=== PATIENT | male | born 1950 | race African-American/Black ===

== ENCOUNTER → 2018-01-24 | Day surgery (SDC) | payer MEDICARE, MEDICAID ==
[~2018-01-24] MED LIST: Calcium Acetate PO; Docusate Sodium PO; Ergocalciferol PO; Folic Acid PO; IOHEXOL-300 100 ML BOTTLE ONE; LIDOCAINE HCL 1% 20ML VIAL (Pyxis) INJ ONE; NEPVIT PO; PANT40TA4 PO; Polyethylene Glycol 3350 PO; TAMS-11 PO
== END | disposition home or self-care (01) ==
LOC: EDSTATUS 11:07 → RADANGIO 11:08
PROVIDERS: ATTEND Internal Medicine Nephrology
DX: N18.6 End stage renal disease (principal); I13.2 Hypertensive heart and chronic kidney disease with heart failure and with stage 5 chronic kidney disease, or end stage renal disease; F17.200 Nicotine dependence, unspecified, uncomplicated; Z79.899 Other long term (current) drug therapy; Z99.2 Dependence on renal dialysis; Z83.3 Family history of diabetes mellitus
CPT/HCPCS: 36589; J3490

== ENCOUNTER 2019-06-16 13:56 | Emergency (ER) | payer MEDICARE, MEDICAID ==
[~2019-06-16] VITALS: Ht 175.3 cm; Wt 77.0 kg
[~2019-06-16 13:56] MED LIST changes: -IOHEXOL-300 100 ML BOTTLE ONE; -LIDOCAINE HCL 1% 20ML VIAL (Pyxis) INJ ONE
[2019-06-16] MEDS ORDERED: KETOROLAC 60MG/2ML VIAL IM ONE (15:15)
[2019-06-16 16:15] VITALS: BP 165/81
== END 2019-06-16 16:43 | disposition home or self-care (01) ==
LOC: ER 14:16
DX: M54.5 Low back pain (principal); I13.0 Hypertensive heart and chronic kidney disease with heart failure and stage 1 through stage 4 chronic kidney disease, or unspecified chronic kidney disease; I50.9 Heart failure, unspecified; N18.6 End stage renal disease; Z98.890 Other specified postprocedural states; Z99.2 Dependence on renal dialysis; V98.8XXA Other specified transport accidents, initial encounter; Y93.89 Activity, other specified; Y92.89 Other specified places as the place of occurrence of the external cause; Y99.8 Other external cause status
CPT/HCPCS: 72100; 96372; 99283; J1885

== ENCOUNTER 2019-08-26 12:56 | Emergency (ER) | payer MEDICARE, MEDICAID ==
[~2019-08-26] VITALS: Ht 175.3 cm; Wt 68.0 kg
[2019-08-26 14:52] VITALS: BP 167/99
[2019-08-26] MEDS ORDERED: LIDOCAINE 5% PATCH TOP STA (15:41)
[2019-08-26] MEDS ORDERED: ACETAMINOPHEN 500MG TABLET PO ONE (15:45)
== END 2019-08-26 17:18 | disposition home or self-care (01) ==
LOC: ER 13:38
DX: M54.42 Lumbago with sciatica, left side (principal); I12.0 Hypertensive chronic kidney disease with stage 5 chronic kidney disease or end stage renal disease; N18.6 End stage renal disease; F17.210 Nicotine dependence, cigarettes, uncomplicated; Z99.2 Dependence on renal dialysis; Z71.6 Tobacco abuse counseling
CPT/HCPCS: 72100; 73502; 99283; 99284; 99406

== ENCOUNTER → 2020-05-25 | Outpatient (CLI) | payer MEDICARE, MEDICAID | END | disposition home or self-care (01) | LOC: RAD 15:02 | PROVIDERS: ATTEND Internal Medicine Nephrology | DX: J43.2 Centrilobular emphysema (principal); R91.8 Other nonspecific abnormal finding of lung field; I70.0 Atherosclerosis of aorta; M47.819 Spondylosis without myelopathy or radiculopathy, site unspecified; Z87.891 Personal history of nicotine dependence | CPT/HCPCS: 71250 ==